=== PATIENT | male | born 1980 | race Caucasian/White ===

== ENCOUNTER → 2017-03-11 | Outpatient (CLI) | payer OTHER ==
[~2017-03-11] MED LIST: ASPEC325 PO; FLEC100T21 PO
--- NOTE | 2017-03-11 14:34 | DIAGNOSTIC IMAGING REPORT ---
CHEST 2 VIEWS ROUTINE CLINICAL HISTORY: J45.909 [id number] Acute bronchitis COMPARISON STUDY: 12/24/2006 FINDINGS: The cardiac and mediastinal contours are normal. There is no evidence of focal pulmonary consolidation. There is no evidence of failure. No pleural effusions are visualized.[ IMPRESSION: No active disease in the chest. Electronically signed by: Johnny Starr M.D. 03/11/2017 2:33 PM Dictated Date/Time: 03/11/2017 2:33 PM
== END | disposition home or self-care (01) ==
LOC: C.RADBC 14:12
PROVIDERS: ATTEND Physician Assistant Medical
DX: J20.9 Acute bronchitis, unspecified (principal); J45.909 Unspecified asthma, uncomplicated

== ENCOUNTER 2017-04-05 03:11 | Emergency (ER) | payer OTHER ==
[~2017-04-05] VITALS: Ht 185.4 cm; Wt 96.3 kg
[2017-04-05 03:16] VITALS: TEMP 36.7; Ht 185.4 cm; Wt 96.3 kg
[2017-04-05] MEDS ORDERED: ATOR-22 PO (04:17)
[2017-04-05 04:41] LABS: BASO % 0.5 %; BASO ABS # 0.03 K/uL (0-0.2); EOS % 2.7 %; EOS ABS # 0.16 K/uL (0-0.5); HEMATOCRIT 47.5 % (42-52); HEMOGLOBIN 17.4 g/dL (14.0-18.0); IG# 0.01 K/uL (0.00-0.02); LYMPH % 44.8 %; LYMPH ABS # 2.65 K/uL (1.2-3.4); MEAN CELL VOLUME 83.9 fL (80-100); MEAN CORPUSCULAR HEMOGLOBIN 30.7 pg (25-34); MEAN CORPUSCULAR HGB CONC 36.6 g/dl (32-36); MEAN PLATELET VOLUME 10.7 fL (7.4-10.4); MONO % 7.8 %; MONO ABS # 0.46 K/uL (0.11-0.59); NEUT ABS # 2.61 K/uL (1.4-6.5); PLATELET COUNT 156 K/uL (130-400); RED CELL DISTRIBUTION WIDTH CV 12.9 % (11.5-14.5); RED CELL DISTRIBUTION WIDTH SD 38.6 fL (36.4-46.3); WHITE BLOOD COUNT 5.92 K/uL (4.8-10.8)
[2017-04-05 05:10] VITALS: BP 135/79; PULSE 97; O2SAT 98
[2017-04-05 05:14] LABS: CALCIUM 8.6 mg/dl (8.5-10.1); CREATININE 0.87 mg/dl (0.60-1.40); POTASSIUM 3.5 mmol/L (3.5-5.1)
--- NOTE | 2017-04-05 05:16 | EMERGENCY ROOM VISIT NOTE ---
History Report prepared by Jag: Petar Murphy Under the Supervision of: Dr. Amena Rivera D.O. First contact with patient: 03:28 Chief Complaint: CARDIAC ASSESSMENT Stated Complaint: A-FIB History of Present Illness The patient is a 36 year old male who presents to the Emergency Room with complaints of an episode heart palpitations beginning 5.5 hours ago. The patient 's palpitations resolved upon arrival to the ED. His episode lasted for five hours total. The patient describes his symptoms as a feeling of "fluttering". He has a previous history of A-fib. He had a cardiac ablation four years ago, and has not had an episode since this time. The patient has had problems with A- fib for about 20 years. He denies medication changes. He has had some increased activity recently. The patient was on Prednisone for sinus infection three weeks ago. He denies shortness of breath. Source of History: patient Onset: 5.5 hours ago Symptom Intensity: Five hours long Quality: other (heart palpitations) Timing: other (episode) Associated Symptoms: No SOB Review of Systems See HPI for pertinent positives & negatives. A total of 10 systems reviewed and were otherwise negative. Past Medical & Surgical Medical Problems: (1) Paroxysmal A-fib Family History No pertinent family history stated. Social History Smoking Status: Never Smoker Housing Status: lives with family Occupation Status: employed Current/Historical Medications Scheduled Atorvastatin (Lipitor), 20 MG PO DAILY Metoprolol Succ (Toprol Xl) (Toprol-Xl), 25 MG PO DAILY Allergies Coded Allergies: Aspirin (Verified Allergy, Unknown, 04/05/17) Penicillins (Verified Allergy, Unknown, 04/05/17) Sulfa Drugs (Verified Allergy, Unknown, 04/05/17) Physical Exam Vital Signs Date Time Temp Pulse Resp B/P (MAP) Pulse Ox O2 Delivery O2 Flow Rate FiO2 04/05/17 05:10 97 18 135/79 98 Room Air 04/05/17 03:31 97 04/05/17 03:16 36.7 104 20 147/86 99 Room Air Physical Exam GENERAL: alert, well appearing, well nourished, no distress, non-toxic EYE EXAM: normal conjunctiva, PERRL and EOM's grossly intact OROPHARYNX: no exudate, no erythema, lips, buccal mucosa, and tongue normal and mucous membranes are moist NECK: supple, no nuchal rigidity, no adenopathy, non-tender LUNGS: Clear to auscultation. Normal chest wall mechanics HEART: no murmurs, S1 normal and S2 normal ABDOMEN: abdomen soft, non-tender, normo-active bowel sounds, no masses, no rebound or guarding. BACK: Back is symmetrical on inspection and there is no deformity, no midline tenderness, no CVA tenderness. SKIN: no rashes and no bruising UPPER EXTREMITIES: upper extremities are grossly normal. LOWER EXTREMITIES: No pitting edema. NEURO EXAM: Normal sensorium, cranial nerves II-XII grossly intact, normal speech, no gross weakness of arms, no gross weakness of legs. Medical Decision & Procedures Laboratory Results 04/05/17 04:15 Red Blood Count 5.66, Mean Corpuscular Volume 83.9, Mean Corpuscular Hemoglobin 30.7, Mean Corpuscular Hemoglobin Concent 36.6, Mean Platelet Volume 10.7, Neutrophils (%) (Auto) 44.0, Lymphocytes (%) (Auto) 44.8, Monocytes (%) (Auto) 7.8, Eosinophils (%) (Auto) 2.7, Basophils (%) (Auto) 0.5, Neutrophils # (Auto) 2.61, Lymphocytes # (Auto) 2.65, Monocytes # (Auto) 0.46, Eosinophils # (Auto) 0.16, Basophils # (Auto) 0.03 04/05/17 04:15 Test 04/05/17 04:15 White Blood Count 5.92 K/uL (4.8-10.8) Red Blood Count 5.66 M/uL (4.7-6.1) Hemoglobin 17.4 g/dL (14.0-18.0) Hematocrit 47.5 % (42-52) Mean Corpuscular Volume 83.9 fL (80-100) Mean Corpuscular Hemoglobin 30.7 pg (25-34) Mean Corpuscular Hemoglobin Concent 36.6 g/dl (32-36) Platelet Count 156 K/uL (130-400) Mean Platelet Volume 10.7 fL (7.4-10.4) Neutrophils (%) (Auto) 44.0 % Lymphocytes (%) (Auto) 44.8 % Monocytes (%) (Auto) 7.8 % Eosinophils (%) (Auto) 2.7 % Basophils (%) (Auto) 0.5 % Neutrophils # (Auto) 2.61 K/uL (1.4-6.5) Lymphocytes # (Auto) 2.65 K/uL (1.2-3.4) Monocytes # (Auto) 0.46 K/uL (0.11-0.59) Eosinophils # (Auto) 0.16 K/uL (0-0.5) Basophils # (Auto) 0.03 K/uL (0-0.2) RDW Standard Deviation 38.6 fL (36.4-46.3) RDW Coefficient of Variation 12.9 % (11.5-14.5) Immature Granulocyte % (Auto) 0.2 % Immature Granulocyte # (Auto) 0.01 K/uL (0.00-0.02) Anion Gap 7.0 mmol/L (3-11) Est Creatinine Clear Calc Drug Dose 144.9 ml/min Estimated GFR () 129.6 Estimated GFR (Non- 111.8 BUN/Creatinine Ratio 16.7 (10-20) Calcium Level 8.6 mg/dl (8.5-10.1) Magnesium Level 2.2 mg/dl (1.8-2.4) Total Bilirubin 0.7 mg/dl (0.2-1) Aspartate Amino Transf (AST/SGOT) 35 U/L (15-37) Alanine Aminotransferase (ALT/SGPT) 68 U/L (12-78) Alkaline Phosphatase 39 U/L (45-117) Total Protein 7.0 gm/dl (6.4-8.2) Albumin 4.0 gm/dl (3.4-5.0) Globulin 3.0 gm/dl (2.5-4.0) Albumin/Globulin Ratio 1.3 (0.9-2) Laboratory results per my review. Medications Administered Medications (Trade) Dose Ordered Sig/Cruz Route Start Time Stop Time Status Last Admin Dose Admin Metoprolol Succinate (Toprol Xl Tab) 25 mg NOW STAT PO 04/05/17 05:38 04/05/17 05:39 DC 04/05/17 05:53 25 MG ECG Indication: palpitations Rate (beats per minute): 98 Rhythm: normal sinus Findings: no acute ischemic change, no ectopy, other (Normal axis. Normal intervals. ) ED Course 0339: The patient was evaluated in room B9. A complete history and physical exam was performed. 0423: I spoke with the patient. He is refusing thyroid testing. I discussed the purpose of his blood work with him. 0540: Upon reevaluation, the patient is feeling better. I discussed the findings and the treatment plan with the patient. He verbalizes agreement and understanding. He was discharged home. Medical Decision Differential diagnosis: Etiologies such as premature contractions, electrolyte abnormality, cardiac dysrhythmia, thyroid dysfunction, pulmonary embolism, infection, gastrointestinal, as well as others were entertained. Patient well-appearing here, observed for several hours and had no recurrence of atrial fibrillation. Labs otherwise reassuring. Discussed with cardiology given patient's prior history and prior ablation. He recommends starting the patient on metoprolol and patient should follow closely office. This was discussed with patient at bedside and he was in agreeable with plan. Discussed symptoms to watch and return for, he verbalized understanding. No evidence of occult infectious pathology, patient had no symptoms of being observed here, hemodynamically stable throughout. Doubt occult vascular etiology, doubt ACS. Medication Reconcilliation Current Medication List: was personally reviewed by me Blood Pressure Screening Patient's blood pressure: Elevated blood pressure Blood pressure disposition: Elevated BP felt to be situational Consults Time Called: [phone] Consulting Physician: Dr. Grier - Cardiology Returned Call: [phone] I reviewed the patient's case with Dr. Grier. He recommends the patient be started on 25 mg of Metoprolol Succinate daily. Impression Primary Impression: Transient atrial fibrillation Additional Impression: Palpitations Scribe Attestation The scribe's documentation has been prepared under my direction and personally reviewed by me in its entirety. I confirm that the note above accurately reflects all work, treatment, procedures, and medical decision making performed by me. Departure Information Dispostion Home / Self-Care Prescriptions Metoprolol Succ (Toprol Xl) (Toprol-Xl) 25 Mg Tabcr 25 MG PO DAILY, #30 TAB Prov: Amena Rivera, DO 04/05/17 Referrals No Doctor, Assigned (PCP) Patient Instructions My [facility] Additional Instructions Please call and follow-up with your vending service technician as soon as possible. Please discuss with them your recent episode in light of your history of atrial fibrillation. If you have any recurrent episodes, develop chest pain, trouble breathing, vomiting, fevers, dizziness, numbness/tingling, or you have any other new or concerning symptoms, please return to the emergency room. Problem Qualifiers
[2017-04-05] MEDS ORDERED: METOPROLOL SUCC 25MG EXT REL TAB PO STA (05:38)
[2017-04-05] MEDS ORDERED: METO25TA3 PO (05:44)
== END 2017-04-05 06:02 | disposition home or self-care (01) ==
LOC: C.EDB 03:12
DX: R00.2 Palpitations (principal); I48.0 Paroxysmal atrial fibrillation; Z98.890 Other specified postprocedural states; Z79.899 Other long term (current) drug therapy